=== PATIENT | male | born 2005 | race Hispanic/Latino ===

== ENCOUNTER 2024-10-07 17:55 | Emergency (ER) | payer MEDICAID, SELFPAY | END 2024-10-07 18:27 | disposition left against medical advice (07) | LOC: ERS 17:55 | DX: R30.0 Dysuria (principal); R51.9 Headache, unspecified | CPT/HCPCS: 94760 ==

== ENCOUNTER 2025-08-10 11:40 | Outpatient (CLI) | payer BC | END 2025-08-10 11:41 | disposition home or self-care (01) | LOC: BICRAD 11:40 | PROVIDERS: ATTEND Physician Assistant | DX: M54.50 Low back pain, unspecified (principal) | CPT/HCPCS: 72100 ==